=== PATIENT | male | born 1980 | race Caucasian/White ===

== ENCOUNTER 2024-05-24 15:25 | Outpatient (CLI) | payer BC, SELFPAY ==
--- NOTE | 2024-05-24 | XR_ITS ---
PROCEDURE INFORMATION: Exam: XR Chest Exam date and time: 05/24/2024 3:50 PM Age: 43 years old Clinical indication: Other: Heaviness in chest. SOA. Fever. TECHNIQUE: Imaging protocol: Radiologic exam of the chest. Views: 2 views. COMPARISON: No relevant prior studies available. FINDINGS: Lungs: Unremarkable. No consolidation. Pleural spaces: Unremarkable. No pleural effusion. No pneumothorax. Heart/Mediastinum: Unremarkable. No cardiomegaly. Bones/joints: Unremarkable. IMPRESSION: No acute findings.
[2024-05-24 15:46] LABS: Microscopic, Urine URINE MICROSCOPIC (MICROSCOPIC)
[2024-05-24 16:10] LABS: Appearance,Urine CLEAR (Clear); Bilirubin,Urine Negative (Negative); Blood, Urine Negative (Negative); Color,Urine YELLOW (Yellow); Glucose,Urine (UA) Negative (Negative); Ketones,Urine Negative (Negative); Leukocyte Esterase,Urine Negative (Negative); Nitrate,Urine Negative (Negative); Protein,Urine Negative (Negative); Specific Gravity, Urine 1.025 (1.005-1.030)
[2024-05-24 16:22] LABS: Bacteria,Urine Trace /lpf; Mucus,Urine Trace /lpf
== END 2024-05-24 23:59 | disposition home or self-care (01) ==
PROVIDERS: PCP Physician Assistant; Visit Provider Physician Assistant
DX: R31.29 Other microscopic hematuria (principal)
CPT/HCPCS: 71046; 81001; 87086

== ENCOUNTER 2024-10-04 17:08 | Emergency (ER) | payer BC, SELFPAY ==
--- OUTSIDE RECORDS SUMMARY | 2024-02-08 11:15 | XMS_ITS ---
Author Organization [facility] Address [facility] [facility] [address] [place] [id number] Care Team Providers Care Strip Cutting Machine Operator Name Role Phone Thu Fregoso Primary Care Provider Allergies No Known Allergies Results Component Value Reference Range Notes Influenza Screen (in house) Reviewed date:02/08/2024 05:12:14 PM Interpretation: Performing Lab: Notes/Report: results Neg Rapid Strep- Inhouse Reviewed date:02/08/2024 05:12:22 PM Interpretation: Performing Lab: Notes/Report: strep test Neg CBC Fingerstick (in house) Reviewed date:02/08/2024 04:19:22 PM Interpretation: Performing Lab: Notes/Report: wbc 9.5 3.5 - 10 lym 19.6 15 - 50 mid 5.2 2 - 15 gran 75.2 35 - 80 rbc 5.43 3.5 - 5.5 hgb 15.9 11.5 - 16.5 hct 48.2 35 - 55 mcv 88.7 75 - 100 mch 29.3 25 - 35 mchc 33.0 31 - 38 plat 232 100 - 400 Covid test (in house) Reviewed date:02/08/2024 05:12:07 PM Interpretation: Performing Lab: Notes/Report: Result: Neg REASON FOR VISIT cough,fever, weak, negative COVID test Medications Medication SIG (Take, Route, Frequency, Duration) Notes Start Date End Date Status Bromfed DM 2-30-10 MG/5ML 5-10 mL Orally four times a day, prn 02/08/2024 Active Zithromax Z-Williams 250 MG 2 pills first day then one daily for 4 days orally as directed; Duration: 5 days 02/08/2024 Activ e Vital Signs Blood pressure systolic 120 mm Hg 02/08/20 24 Blood pressure diastolic 74 mm Hg 024 Heart Rate 89 /min 02/08/2024 Weight 206.4 lbs 02/08/2024 Encounters Encounter Location Date Provider Diagnosis [facility] [address] [place] [id number] 02/08/2024 Thu Fregoso Acute URI J06.9 and Bronchitis J40 Assessments Encounter Date Diagnosis (ICD Code) Assessment Notes Treatment Notes Treatment Clinical Notes Section Notes 02/08/2024 Acute URI (ICD-10 - J06.9) fluids, rest, supportive measures for fever/symptom relief 02/08/2024 Bronchitis (ICD-10 - J40) Has inhaler at home he will use. If no improvement by first of the week, will need a CXR. Plan Of Treatment Medication Medication Name Sig Start Date Stop Date Notes Bromfed DM 2-30-10 MG/5ML 5-10 mL Orally four times a day, prn 02/08/2024 Zithromax Z-Williams 250 MG 2 pills first day then one daily for 4 days orally as directed; Duration: 5 days 02/08/2024 Treatment Notes Assessment Notes Acute URI fluids, rest, suppor tive measures for fever/symptom relief Bronchitis Has inhaler at home he will use. If no improvement by first of the week, will need a CXR. Next Appt Details Follow Up: prn, Reason: Progress Notes * GRUPO CERVANTESOB:1980 (43 yo M)Acc No.[id number]:02/08/2024 Progress Notes Patient: Chino GOFFYAZANDALEDAVONTE Provider: RUPINDER Welch :1980 A ge:43 Y S ex:Male Date:02/08/2024 Address:[address] [place] [address] Subjective: * Chief Complaints: * 1 . cough,fever, weak, negative COVID test. * HPI: E NT/respiratory: 43 year old male presents with c/o sore throat. c/o cough?Pt sts he has been in the bed for 3 days not feeling well. Pt sts his symptoms started late Sunday. Pt sts he first noticed he had a sore throat and then his symptoms got progressively worse. Pt sts he has been around people with covid but sts when he took his test it was negative. c/o Fever. c/o Chest Pain. c/o Short of Breath. c/o headache. c/o body aches.? Denies : ear pain. * Medical History: M edical History Verified. * Family History: N o Family History documented.. * Medications: N one * Allergies: N .K.D.A. Objective: * Vitals: W t:206.4, Temp:98.6, BP:120/74, HR:89, O2 Sat:95% on RA, Nurse:ANABEL. * Examination: E NT/Respiratory: General Appearance: Does not appear to feel well. E ars: a uditory canals normal bilaterally, TM's WNL. N ose : turbinates red, congested.?Sinuses : t shyanne maxillary sinuses bilaterally. O ral cavity : erythema without exudate on pharynx, PND present. N christy : n o cervical lymphadenopathy. H eart : R RR, normal S1 S2, no murmurs. L ungs: expiratory wheezes, no rales. Assessment: * Assessment: 1. A molly URI - J06.9 (Primary) 2 . B venus - J40 Plan: * Treatment: Value Reference Range r esults Neg * Joyce Sexton 02/08/2024 4:23:46 PM > , Provider reviewed results while patient in office.Thu Fregoso 02/08/2024 5:12:11 PM > ?LAB: Rapid Strep- Inhouse (Collection Date & Time - 02/08/2024)* Value Reference Range s trep test Neg * Joyce Sexton 02/08/2024 4:24:01 PM > , Provider reviewed results while patient in office.Thu Fregoso 02/08/2024 5:12:19 PM > ?LAB: CBC Fingerstick (in house) (Collection Date & Time - 02/08/2024)* Value Reference Range w bc 9.5 3.5 - 10 * l ym 19.6 15 - 50 * m id 5.2 2 - 15 * g ran 75.2 35 - 80 * r bc 5.43 3.5 - 5.5 * h gb 15.9 11.5 - 16.5 * h ct 48.2 35 - 55 * m cv 88.7 75 - 100 * m ch 29.3 25 - 35 * m chc 33.0 31 - 38 * p lat 232 100 - 400 * Bhavna Jones 02/08/2024 4:01: 41 PM > Provider reviewed results while patient in office.VicedgardThu Katz 02/08/2024 4:19:19 PM > Notes: fluids, rest, supportive measures for fever/symptom relief??2.?Bronchitis ? Start Zithromax Z-Williams Tablet, 250 MG, 2 pills first day then one daily for 4 days, orally, as directed, 5 days, 1, Refills 0;?Start Bromfed DM Syrup, 2-30-10 MG/5ML, 5-10 mL, Orally, four times a day, prn, 240 mL, Refills 1.?LAB: Covid test (in house) (Collection Date & Time - 02/08/2024)* Value Reference Range R esult: Neg * Joyce Sexton 02/08/2024 4:24:14 PM > , Provider reviewed results while patient in office.VicedgardThu Katz 02/08/2024 5:12:04 PM > Notes: Has inhaler at home he will use. If no improvement by first of the week, will need a CXR. ? * Procedure Codes: 9 [address] [place], [address] CAPILLARY BLOOD DRAW, 29529 CBC WITH AUTO DIFF, 72105 Flu Test- Nasal Swab, Modifiers: QW , 72935 STREP A ASSAY W/OPTIC, Modifiers: QW , 59038 COVID TEST IN HOUSE, Modifiers: QW * Follow Up: p rn * Images: Billing Information: * Visit Code: 28099 Office Visit, New Pt., Level 2. * Procedure Codes: [address] [place]. [address] CAPILLARY BLOOD DRAW. 78359 CBC WITH AUTO DIFF. 73090 Flu Test- Nasal Swab. Modifiers: QW 94067 STREP A ASSAY W/OPTIC. Modifiers: QW 42369 COVID TEST IN HOUSE. Modifiers: QW * Electronic signature of RUPINDER Robin on 10/04/2024 at 05:34 PM EDT Sign off status: Pending * Provider: RUPINDER Welch Date: 04/09/2023 Generated for Tom meraz/Phillip/eTransmitting on: 0 10/04/2024 05:34 PM EDT History and Physical Notes * HPI (History of Present Illness) Category Sub-Category Detail Notes Category Not es ENT/respiratory sore throat ear pain Short of Breath Chest Pain cough Pt sts he has been i n the bed for 3 days not feeling well. Pt sts his symptoms started late Sunday. Pt sts he first noticed he had a sore throat and then his symptoms got progressively worse. Pt sts he has been around people with covid but sts when he took his test it was negative Fever headache body aches Examination Category Sub-Category Detail Notes Category Not es ENT/Respiratory Oral cavity : erythema without exudate on pharynx, PND present Sinuses : tender maxillary sin uses bilaterally Ears: auditory canals norm al bilaterally, TM's WNL Neck : no cervical lymphade nopathy Heart : RRR, normal S1 S2, n o murmurs Lungs: expiratory wheezes, no rales General Appearance: Does not appear to f eel well Nose : turbinates red, greg ested
--- OUTSIDE RECORDS SUMMARY | 2024-05-22 07:30 | XMS_ITS ---
[facility] [address] [facility] [address] [id number] Care Team Providers Care Shearing Machine Tender Name Role Phone Thu Fregoso Primary Care Provider Allergies No Known Allergies Results Component Value Reference Range Notes Urinalysis - Inhouse Reviewed date:05/22/2024 05:04:25 PM Interpretation: Performing Lab: Notes/Report: Color/Clarity crissy/clear Leuk Neg Nitrite Neg Urobili >=131 Protein 2+ pH 6.0 Blood Trace-Intact Sp. Gr. 1.015 Ketone 1+ Bili 2+ Gluc Neg Influenza Screen (in house) Reviewed date:05/22/2024 05:07:28 PM Interpretation:neg Performing Lab: Notes/Report: neg results neg CBC Fingerstick (in house) Reviewed date:05/22/2024 05:07:35 PM Interpretation: Performing Lab: Notes/Report: wbc 9.3 3.5 - 10 lym 22.3 15 - 50 mid 6.2 2 - 15 gran 71.5 35 - 80 rbc 5.25 3.5 - 5.5 hgb 15.6 11.5 - 16.5 hct 45.2 35 - 55 mcv 86.1 75 - 100 mch 29.7 25 - 35 mchc 34.5 31 - 38 plat 216 100 - 400 P-Comprehensive Metabolic Pa sofi (CMP) Reviewed date:05/26/2024 07:43:11 AM Interpretation: Performing Lab: Notes/Report: Test performed by [facility] [address] [place] [address] , [address], [place] [address] Chadd Wong MD, [employer] CLIA: [id number] Sodium 140 135-145 mmol/L Potassium 4.3 3.5-5.3 mmol/L Chloride 98 97-108 mmol/L CO2 29 22-32 mmol/L Glucose 83 65-99 mg/dL BUN 20 6-20 mg/dL Creatinine 1.13 0.70-1.30 mg/dL Calcium 9.6 8.6-10.4 mg/dL eGFR by Creatinine 83 >59 mL/min/1.73m2 Protein 7.3 6.0-8.3 g/dL Albumin 4.4 3.5-5.3 g/dL Alkaline Phosphatase 67 40-129 IU/L ALT (SGPT) 18 <5-55 IU/L AST (SGOT) 19 <5-46 IU/L Bilirubin, Total 0.7 <0.2-1.2 mg/dL A/G Ratio 1.5 1.1-2.5 TEN-Upper Respiratory PCR Reviewed date:05/26/2024 08:04:26 AM Interpretation:Abnormal Performing Lab: Notes/Report: Abnormal Covid test (in house) Reviewed date:05/22/2024 05:07:20 PM Interpretation:neg Performing Lab: Notes/Report: neg Result: neg REASON FOR VISIT Possible Flu, Day 6 Medications Medication SIG (Take, Route, Frequency, Duration) Notes Start Date End Date Status Promethazine-DM 6.25-15 MG/5ML 5 ml as needed Orally every 6 hrs, prn 05/22/2024 Active Vital Signs Blood pressure systolic 120 mm Hg 05/22/19 25 Blood pressure diastolic 70 mm Hg 025 Heart Rate 107 /min 05/22/2024 Weight 210.0 lbs 05/22/2024 Encounters Encounter Location Date [facility] [address] [id number] 05/22/2024 Thu Fregoso Acute URI J06.9 ; Bronchitis J40 ; Microscopic hematuria R31.29 and Dehydration E86.0 Assessments Encounter Date Diagnosis (ICD Code) Assessment Notes Treatment Notes Treatment Clinical Notes Section Notes 05/22/2024 Acute URI (ICD-10 - J06.9) 05/22/2024 Bronchitis (ICD-10 - J40) Patient has an albuterol inhaler at home he will start using. 05/22/2024 Microscopic hematuria (ICD-10 - R31.29) 05/22/2024 Dehydration (ICD-10 - E86.0) Plan Of Treatment Medication Medication Name Sig Start Date Stop Date Notes Promethazine-DM 6.25-15 MG/5ML 5 ml as n eeded Orally every 6 hrs, prn 05/22/2024 Treatment Notes Assessment Notes Bronchitis Patient has an albut juan j inhaler at home he will start using. Next Appt Details Follow Up: via phone to repo rt test results, Reason: Progress Notes * GRUPO CERVANTESOB:1980 (43 yo M)Acc No.[id number]:05/22/2024 Progress Notes Patient: DAVONTE SANTOS Provider: RUPINDER Welch :1980 A ge:43 Y S ex:Male Date:05/22/2024 Address:[address] [place] [address] Subjective: * Chief Complaints: * 1 . Possible Flu, Day 6. * HPI: E NT/respiratory: 43 year old male presents with c/o cough P t sts he does have sneezing, runny nose and sts his drainage is yellow in color. c/o nasal congestion. c/o Fever P t sts he has had a fever and sts he wakes up with his pillow soaked in sweat and sts he has chills. c/o ear pain P t sts that his rt ear is stopped up and he can not hear out of it. c/o headache. c/o body aches. Pt sts his symptoms started on Sunday. G astroenterology: c/o appetite P t sts he does not have any appetite and has not eaten anything in 4 days, but sts he has being staying hydrated with lots of water. U rology: Pt sts that his urine has been a different color than it has ever been as well. * Medical History: M edical History Verified. * Family History: N o Family History documented.. * Medications: N one * Allergies: N .K.D.A. Objective: * Vitals: W t:210.0, Temp:98.4, BP:120/70, HR:107, O2 Sat:97% on RA, Nurse:annalise. * Examination: E NT/Respiratory: General Appearance: Doesn't appear to feel well. E ars: c erumen in right canal, left canal normal, TM's WNL. N ose : turbinates red, congested. S inuses : non tender bilaterally. O ral cavity : no erythema or exudate seen on pharynx, PND present. N christy : n o cervical lymphadenopathy. H eart : R RR, normal S1 S2, no murmurs. L ungs: expiratory wheezes, no rales. A bdomen : BS present, soft, nontender. Assessment: * Assessment: 1. A cute URI - J06.9 (Primary) 2 . B ronchitis - J40 3 .?Microscopic hematuria - R31.29 4 . D ehydration - E86.0 Plan: * Treatment: 2.?Bronchitis?LAB: Influenza Screen (in house) (Collection Date & Time - 05/22/2024)?neg * Value Reference Range r esults neg * Bhavna Jones 05/22/2024 12:00 :07 PM > Provider reviewed results while patient in office.Thu Fregoso 05/22/2024 5:07:25 PM > ?LAB: CBC Fingerstick (in house) (Collection Date & Time - 05/22/2024)* Value Reference Range w bc 9.3 3.5 - 10 * l ym 22.3 15 - 50 * m id 6.2 2 - 15 * g ran 71.5 35 - 80 * r bc 5.25 3.5 - 5.5 * h gb 15.6 11.5 - 16.5 * h ct 45.2 35 - 55 * m cv 86.1 75 - 100 * m ch 29.7 25 - 35 * m chc 34.5 31 - 38 * p lat 216 100 - 400 * Bhavna Jones 05/22/2024 11:59 :19 AM > Provider reviewed results while patient in office.Thu Fregoso 05/22/2024 5:07:32 PM > ?LAB: Covid test (in house) (Collection Date & Time - 05/22/2024)?neg* Value Reference Range R esult: neg * Bhavna Jones 05/22/2024 11:59 :43 AM > Provider reviewed results while patient in office.Thu Fregoso 05/22/2024 5:07:18 PM > Notes: Patient has an albuterol inhaler at home he will start using.?? 3.?Microscopic hematuria?LAB: Urinalysis - Inhouse (Collection Date & Time - 05/22/2024)* Value Reference Range C olor/Clarity crissy/clear * L euk Neg * N itrite Neg * U robili >=131 * P rotein 2+ * p H 6.0 * B lood Trace-Intact * S p. Gr. 1.015 * K etone 1+ * B saida 2+ * G matthew Neg * Joyce Sexton 05/22/2024 12:35:4 2 PM > , Provider reviewed results while patient in office.Thu Fregoso 05/22/2024 5:04:20 PM > will cx 4.?Dehydration?LAB: P-Comprehensive Metabolic Panel (CMP) (Collection Date & Time - 05/22/2024 11:23 AM)* Value Reference Range A /G Ratio 1.5 1.1-2.5 - * A lbumin 4.4 3.5-5.3 - g/dL * A lkaline Phosphatase 67 40-129 - IU/L * A LT (SGPT) 18 <5-55 - IU/L * A ST (SGOT) 19 <5-46 - IU/L * B ilirubin, Total 0.7 <0.2-1.2 - mg/dL * B UN 20 6-20 - mg/dL * C alcium 9.6 8.6-10.4 - mg/dL * C hloride 98 97-108 - mmol/L * C O2 29 22-32 - mmol/L * C reatinine 1.13 0.70-1.30 - mg/dL * G lucose 83 65-99 - mg/dL * P otassium 4.3 3.5-5.3 - mmol/L * S odium 140 135-145 - mmol/L * P rotein 7.3 6.0-8.3 - g/dL * e GFR by Creatinine 83 >59 - mL/min/1.73m2 * Thu Fregoso 05/26/2024 7: 43:00 AM > already discussed with patient * Procedure Codes: 9 47[address] [place], [address] Flu Test- Nasal Swab, Modifiers: QW , 59332 COVID TEST IN HOUSE, Modifiers: QW , 71392 CAPILLARY BLOOD DRAW, 69923 CBC WITH AUTO DIFF, 63336 Urinalysis, no micro, 3074F SYST BP LT 130 MM HG, 3078F DIAST BP < 80 MM HG * Follow Up: v ia phone to report test results * Images: Billing Information: * Visit Code: 80619 Office Visit, Est Pt., Level 3. * Procedure Codes: [address] [place]. [address] Flu Test- Nasal Swab. Modifiers: QW 01037 COVID TEST IN HOUSE. Modifiers: QW 22611 CAPILLARY BLOOD DRAW. 46939 CBC WITH AUTO DIFF. 64914 Urinalysis, no micro. 3074F SYST BP LT 130 MM HG. 3078F DIAST BP < 80 MM HG. * Electronic signature of RUPINDER Robin on 10/04/2024 at 05:34 PM EDT Sign off status: Pending * Provider: RUPINDER Welch Date: 0 05/22/2024 Generated for Tom meraz/Phillip/eTransmitting on: 0 10/04/2024 05:34 PM EDT History and Physical Notes * HPI (History of Present Illness) Category Sub-Category Detail Notes Category Not es ENT/respiratory ear pain Pt sts that his rt ear is stopped up and he can not hear out of it Pt sts his symptoms started on Sunday cough Pt sts he does have sneezing, runny nose and sts his drainage is yellow in color Fever Pt sts he has had a fever and sts he wakes up with his pillow soaked in sweat and sts he has chills headache nasal congestion body aches Gastroenterology appetite Pt sts he does not have any appetite and has not eaten anything in 4 days, but sts he has being staying hydrated with lots of water Urology Pt sts that his urine has been a different color than it has ever been as well Examination Category Sub-Category Detail Notes Category Not es ENT/Respiratory Oral cavity : no erythema or e xudate seen on pharynx, PND present Sinuses : non tender bilateral ly Ears: cerumen in right can al, left canal normal, TM's WNL Neck : no cervical lymphade nopathy Heart : RRR, normal S1 S2, n o murmurs Lungs: expiratory wheezes, no rales Abdomen : BS present, soft, no ntender General Appearance: Doesn't appear to fe el well Nose : turbinates red, greg ested
[2024-10-04 17:22] VITALS: BP 132/85; PULSE 78; RESP 18; TEMP 36.7; O2SAT 97; BMI 31.2
--- OUTSIDE RECORDS SUMMARY | 2024-10-04 17:35 | XMS_ITS | Patient Health Record ---
Author Organization [facility] Address [address] [place] [id number] Care Team Providers Care Separator Inserter Name Role Phone Thu Fregoso Primary Care Provider [phone] Allergies No Known Allergies Results Component Value [...] PM Interpretation: Performing Lab: Notes/Report: Result: Neg Urinalysis - Inhouse Reviewed date:05/22/2024 05:04:25 PM [...] Interpretation: Performing Lab: Notes/Report: Test performed by [employer] [address] [place] [address] , [address], [place] [address] Chadd Wong MD, [employer] CLIA: [id number] Sodium 140 135-145 mmol/L Potassium 4.3 3.5-5.3 [...] Interpretation:neg Performing Lab: Notes/Report: neg Result: neg H-UA Reviewed date:05/26/2024 07:27:39 AM Interpretation: Performing Lab: Notes/Report: UCOL YELLOW Yellow UAPP CLEAR Clear UPH 6.0 5.0-8.5 USG 1.025 1.005-1.030 UPRO Negative Negative UGLU Negative Negative UKET Negative Negative UBLD Negative Negative UNIT Negative Negative UBIL Negative Negative UURO 4.0 0.2 EU/dl ULEU Negative Negative UMICU URINE MICROSCOPIC MICROSCOPIC CXR Reviewed date:05/26/2024 05:16:16 PM Interpretation: Performing Lab: Notes/Report: CISCO Reviewed date:02/08/2024 11:34:59 AM Interpretation: Performing Lab: Notes/Report: H-UA Reviewed date:05/26/2024 07:27:24 AM Interpretation: Performing Lab: Notes/Report: UCOL YELLOW Yellow UAPP CLEAR Clear UPH 6.0 5.0-8.5 USG 1.025 1.005-1.030 UPRO Negative Negative UGLU Negative Negative UKET Negative Negative UBLD Negative Negative UNIT Negative Negative UBIL Negative Negative UURO 4.0 0.2 EU/dl ULEU Negative Negative UMICU URINE MICROSCOPIC MICROSCOPIC URBC None 0-3 #/hpf UWBC None 0-3 #/hpf USQEPI 3-5 0-5 #/hpf UBACT Trace NONE /lpf UMUC Trace None /lpf H-Urine Culture and Sensitiv ity Reviewed date:05/26/2024 05:16:16 PM Interpretation: Performing Lab: Notes/Report: [facility] NO GROWTH AFTER 2 DAYS Reason For Referral No Information Medications Medication SIG (Take, Route, Frequency, Duration) Notes Start Date End Date Status Promethazine-DM 6.25-15 MG/5ML 5 ml as needed Orally every 6 hrs, prn 05/22/2024 Active Cefdinir 300 MG 1 cap(s) Orally Two times a day; Duration: 7 days 05/26/2024 Active Vital Signs Heart Rate 107 /min 05/22/2024 Blood pressure diastolic 70 mm Hg 05/22/2024 Blood pressure systolic 120 mm Hg 05/22/2024 Weight 210.0 lbs 05/22/2024 Encounters Encounter Location Date Provider Diagnosis [facility] [address] [facility] [address] [facility] [address] [place] [id number] 02/08/2024 Thu Crowdy Acute URI J06.9 and Bronchitis J40 [facility] [address] [facility] [address] [facility] [address] [place] [id number] 05/22/2024 Thu Crowdy Acute URI J06.9 ; Bronchitis J40 ; Microscopic hematuria R31.29 and Dehydration E86.0 [facility] [address] [place], [place] [id number] 05/23/2024 Thu Fregoso Microscopic hematuri a R31.29 and Bronchitis J40 [facility] [address] [place], [place] [id number] 05/26/2024 Thu Fregoso [facility] [address] [place], [place] [phone] 05/26/2024 Thu Fregoso Assessments Encounter Date Diagnosis (ICD Code) Assessment Notes Treatment Notes Treatment Clinical Notes Section Notes 02/08/2024 Bronchitis (ICD-10 - J40) Has inhaler at home he will use. If no improvement by first of the week, will need a CXR. 02/08/2024 Acute URI (ICD-10 - J06.9) fluids, rest, supportive measures for fever/symptom relief 05/22/2024 Bronchitis (ICD-10 - J40) Patient has an albuterol inhaler at home he will start using. 05/22/2024 Acute URI (ICD-10 - J06.9) 05/23/2024 Bronchitis (ICD-10 - J40) 05/23/2024 Microscopic hematuria (ICD-10 - R31.29) 05/22/2024 Microscopic hematuria (ICD-10 - R31.29) 05/22/2024 Dehydration (ICD-10 - E86.0) Plan Of Treatment No Information Insurance Providers Payer Name Payer Address Payer Phone Subscriber Number Group Number Insured Name Patient Relationship to Insured Coverage Start Date Coverage End Date [employer] [address] [place] [address] [id number] DAVONTE CERVANTES Self - patient is the insured Medical (General) History Surgical History Surgery Date(Month/Year)
--- NOTE | 2024-10-04 18:09 | ECG_ITS ---
APPROVED REPORT Exam: Resting ECG HR:78 bpm ECG Measurements Heart Rate 78 AXES WV 140 P 59 QRSd 88 QRS 76 QT 362 T 59 QTc 395 Conclusion Sinus rhythm Electronically signed by : MELINA BRANCH, 10/04/2024 22:40:37
[2024-10-04 18:10] LABS: Anti-Centromere B Antibodies ND; Anti-Jo-1 ND; Antichromatin Antibodies ND; Antiscleroderma-70 Antibodies ND; Lyme Ab IgM CIA ND; Lyme IgG CIA ND; RNP Antibodies ND; Sjogren's Anti-SS-A ND; Sjogren's Anti-SS-B ND
--- NOTE | 2024-10-04 18:15 | ED_ITS ---
Discharge Plan Disposition Patient Disposition: Home, Self-Care Prescriptions Prescriptions: New prednisone 20 mg tablet 40 mg PO DAILY 5 Days Qty: 10 0RF Referrals Follow up/Referrals: Provider,Referral, MD [Primary Care Provider, Medical] - See instructions Activity Restrictions/Add. Instructions Additional Instructions/Restrictions: Set up follow-up with rheumatology [facility]: [phone] [facility]: [phone] Call your family doctor to establish care for this visit to the emergency department and schedule follow-up within 48 hours to ensure improvement. If you have any worsening of your condition or any other concerning signs or symptoms, return to the emergency department or your primary care doctor for further evaluation. Clinical Impressions Clinical Impression: Malaise, Polyarthralgia Stand Alone Forms Stand Alone Forms: Work/School Release Print Language Print Language: Egyptian Discharge ED Provider: Nestor Muhammad General Adult HPI General Chief complaint: Extremity Problem,Nontraumatic Stated complaint: nausea,chest discomfort,weakness Time Seen by Provider: 10/04/24 17:51 Mode of Arrival: Ambulatory Description of Symptoms (Recalled from ER Triage Doc. by RN): c/o 2 days a flare up of feeling lethargic, nauseated and achy and joints sore, pt reports that he has these symptoms off and on for the past few years, with them coming and going History of Present Illness HPI narrative: Please note that above description of symptoms, in this electronic medical record under categorization of recalled from ER triage doctor by RN are reflective of an initial nursing assessment, however, is not reflective of my full history and physical exam that was personally taken and clarified. Consequentially, this preceding description of symptoms, which may include the patient's categorized chief complaint in the EMR, do not reflect my personal clinical impression, and the ultimate description of history of present illness and patient stated complaints should be deferred to this section of the note. Unless stated otherwise or congruent with this section of the note, additional signs, symptoms, or incongruence should be interpreted as inaccurate with my clinical impression. Related Data Previous Rx's ?Medication ?Instructions ?Recorded prednisone 20 mg tablet 40 mg (2 x 20 mg) PO DAILY 5 days 10/04/24 #10 tabs Allergies Allergy/AdvReac Type Severity Reaction Status Date / Time No Known Allergies Allergy Verified 10/04/24 18:45 [facility] Disclaimer: The information contained in this section may have been updated after the patient was seen, as this information can be updated by other users. Social History Smoking Status: Former smoker alcohol intake: current current occupational status: employed Travel in the last 8 weeks?: None ROS Obtained: Yes All systems reviewed & no additional complaints except as documented Physical Exam General General appearance: alert and in no apparent distress Head Head exam: atraumatic and normocephalic Eye Eye exam: Present normal appearance, PERRL and EOMI Neck Neck exam: Present normal inspection, full ROM and trachea midline Respiratory Respiratory exam: Absent respiratory distress, wheezes, stridor, accessory muscle use or prolonged expiratory phase Cardiovascular Cardiovascular exam: Present other (Pulses equal symmetric in upper and lower extremities) Abdominal Exam Abdominal exam: Present soft; Absent distention, tenderness or pulsatile mass Extremities Exam Extremities exam: Present tenderness (Elbows with no outward signs of abnormality); Absent edema Neurological Exam Neurological exam: Present alert, oriented X3 and CN II-XII intact; Absent motor sensory deficit Skin Skin exam: Present warm and dry; Absent diaphoresis or erythema Medical Decision Making Medical Records Medical records reviewed: Yes I reviewed the patient's medical records. Screening: Per USPSTF and CDC recommendations, given the prevalence of disease in our region, it is our hospital?s policy to screen for HIV and viral Hepatitis for all patients aged 18 and over and those with ongoing risk factors. Seven Inquiry Pt receiving controlled substance: No Seven was queried for this patient: No Vital Signs: 10/04/24 17:22 Temperature 98.1 F Temperature Source Oral Pulse Rate [Left Radial] 78 Respiratory Rate 18 Blood Pressure [Right Arm] 132/85 Blood Pressure Mean [Right Arm] 100 02 Sat by Pulse Oximetry 97 Oxygen Delivery Method Room Air Lab Data Lab Results 10/04/24 17:38: WBC 6.6, RBC 5.36, Hgb 15.9, Hct 46.4, MCV 86.6, MCH 29.7, MCHC 34.3, RDW 11.8, Plt Count 299, MPV 8.9, Neut % (Auto) 50.8, Lymph % (Auto) 32.8, [place] % (Auto) 10.6 H, Eos % (Auto) 4.9, Baso % (Auto) 0.6, Neut # (Auto) 3.3, Lymph # (Auto) 2.2, [place] # (Auto) 0.7, Eos # (Auto) 0.3, Baso # (Auto) 0.0, ESR 2, Sodium 136, Potassium 3.9, Chloride 100, Carbon Dioxide 28, Anion Gap 11.9, BUN 16, Creatinine 1.20, Estimated Creat Clear 113, Estimated GFR 67, Est GFR ( Amer) 81, Glucose 78, Calcium 9.7, Total Bilirubin 0.4, AST 28, ALT 22, Alkaline Phosphatase 54, Total Creatine Kinase 90, C-Reactive Protein 5.1 H, Total Protein 7.2, Albumin 4.3, Globulin 2.9, Albumin/Globulin Ratio 1.5 10/04/24 18:50: Urine Color Yellow, Urine Appearance Clear, Urine pH 6.0, Ur Specific [place] 1.010, Urine Protein Negative, Urine Glucose (UA) Negative, Urine Ketones Negative, Urine Blood Negative, Urine Nitrate Negative, Urine Bilirubin Negative, Urine Urobilinogen 1.0, Ur Leukocyte Esterase Negative, Urine RBC Occasional, Urine WBC Occasional, Ur Squamous Epith Cells 3-5, Urine Bacteria Trace, Urine Mucus Trace 10/04/24 17:38 10/04/24 17:38 Orders (Tests/Meds): ED MEDICATIONS Discontinued Medications Generic Name Dose Route Start Last Admin Trade Name Freq PRN Reason Stop Dose Admin Dexamethasone 10 mg 10/04/24 18:08 10/04/24 18:51 Dexamethasone 4mg Tablet PO 10/04/24 18:09 10 mg ONCE ONE Administration Lactated Ringer's 1,000 mls @ 999 mls/hr 10/04/24 18:08 10/04/24 18:51 Lactated Ringer's 1000 Ml Bag IV 10/04/24 19:08 999 mls/hr .Q1H1M ONE Administration ORDERS Category Date Time Status POCUS Point of Care (ER Only) Stat Exams 10/04/24 18:18 Completed MARQUISE w/Reflex if Positive Stat Lab 10/04/24 17:38 Received Anti-DNA (DS) Ab Qn Stat Lab 10/04/24 17:38 Received CBC w/Auto Diff [Complete Blood Count Auto Diff] Stat Lab 10/04/24 17:38 Completed CK [Creatine Kinase] Stat Lab 10/04/24 17:38 Completed CMP [Comprehensive Metabolic Panel] Stat Lab 10/04/24 17:38 Completed CRP [C-Reactive Protein] Stat Lab 10/04/24 17:38 Completed ESR [Erythrocyte Sedimentation Rate] Stat Lab 10/04/24 17:38 Completed Human Granulocytic Zoë-HGE Stat Lab 10/04/24 17:38 Received Lyme Ab, Modified 2-Tier Stat Lab 10/04/24 17:38 Received UA [Urinalysis and Microscopic] Stat Lab 10/04/24 18:50 Completed Urine Chlam/Gono/Trich, JOURDAN Routine Lab 10/04/24 18:50 Received Medical Decision Narrative: This is a 43-year-old male with no relevant medical history presenting with multiple complaints. He states that he has had multiple episodes over the past few years where he is felt generally weak, achy in his joints, rashes popped up on his chest and face. 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 States that for the past couple of weeks he has been feeling generally drained. Gotten to the point where he has almost no energy to get out of bed has missed work the last 2 days. States that he has not had any rash this time around, but has aching elbows. Denies any red, hot, swollen joints currently or in the past. No chest pain, shortness of breath, fevers or chills, no vomiting, no diarrhea, no sick exposures. No recent relevant travel, no obvious tick borne illnesses that he is had in the past, although he does not note that he has had ticks on him multiple times in the past. History was obtained via conversation with patient. On arrival, patient hemodynamically stable, alert, oriented x4, appropriate, GCS 15, moving all extremities spontaneously, pupils equal and reactive to light. Full physical exam performed and significant for very clinically well-appearing male no acute distress. Hemodynamically stable, afebrile, speaking in full sentences. Lungs are clear, cardiac exam without murmurs gallops or rubs. Patient's joints all inspected, no tenderness, no redness, no swelling, no abnormalities. Most tenderness appears to be in the mid forearm of radius and ulna. Not specifically over joints. No rash. Unremarkable exam overall. Differential includes autoimmune illness, tickborne illness, STI, metabolic abnormality, endocrinologic abnormality, among others. Patient placed on continuous cardiac monitoring and continuous pulse ox with initial blood pressure 132/85, heart rate 78, saturation 97% on room air. Independent interpretation of EKG shows sinus rhythm 78 bpm KS 140, QRS 88, QTc 395. Normal axis no acute ischemic changes. Intervals within normal limits. Patient was given fluids and Decadron for symptomatic management and correction of underlying abnormalities. Workup independently interpreted and significant for nonactionable CBC, chemistry, inflammatory markers. Urinalysis unremarkable. Bedside [id number] ultrasound was performed, on independent to rotation, normal cardiac ultrasound with no abnormal findings at all. Reevaluation, patient still feels at baseline, no changes. Unsure what is causing patient's symptoms, but recommended he follow-up with his family doctor as well as rheumatology. Some resources were supplied for follow-up that outside facility as we do not have rheumatology here. He voices understanding. Steroid to be sent to the pharmacy for the next 5 days as well as work release. Given patient presentation, workup, history, this most likely represents general malaise, polyarthralgias and rash of unknown significance. Because patient at baseline without signs or symptoms of clinical decompensation, deemed appropriate for discharge. Results were relayed to patient who voiced understanding and were agreeable to outpatient management and follow up. I discussed my clinical impression with patient and answered all questions. At this time, the evidence for any other entities in the differential is insufficient to warrant any further testing or ED observation. This was explained as well. Advisory was given that persistent or worsening symptoms require further evaluation. I confirmed the understanding of this discussion. Senior Civil Engineer disclaimer Much of this encounter note is an electronic pitting machine operator spoken language to printed text. Electronic pitting machine operator of the spoken language may permit errors. Although I have reviewed the note, some errors may still exist. Critical Care Critical Care Time Critical Care Time: No
[2024-10-04 18:18] LABS: Alanine Aminotransferase 22 U/L (12-78); Albumin Level 4.3 g/dl (3.5-5.0); Albumin/Globulin Ratio 1.5 (1.1-1.8); Alkaline Phosphatase 54 U/L (38-126); Anion Gap 11.9 mEq/L (5-15); Aspartate Amino Transferase 28 U/L (17-59); Bilirubin,Total 0.4 mg/dl (0.2-1.3); Blood Urea Nitrogen 16 mg/dl (9-20); Calcium 9.7 mg/dl (8.4-10.2); Carbon Dioxide 28 mmol/L (22.0-30.0); Chloride 100 mmol/L (98-107); Creatinine Clearance Estimated 113 mL/min (50-200); Estimated Glomerular Filt Rate 67 ml/min (>60); GFR (African American) 81 ML/MIN (>60); Globulin 2.9 g/dL (1.3-3.2); Glucose 78 mg/dl (74-100); Potassium 3.9 mmoL/L (3.5-5.1); Sodium 136 mmol/L (136-145); Total Protein,Serum 7.2 g/dl (6.3-8.2)
[2024-10-04 18:22] LABS: Basophils % 0.6 % (0.1-2.0); Eosinophils # 0.3 Kmm3 (0.0-0.4); Eosinophils % 4.9 % (0.1-12.0); Hematocrit 46.4 % (42.0-52.0); Hemoglobin 15.9 g/dL (14.1-18.0); Immature Granulocytes # 0.02 10^3uL; Immature Granulocytes % 0.3 %; Lymphocytes # 2.2 K/mm3 (0.7-4.5); Lymphocytes % 32.8 % (10-50); Mean Corpuscular HGB Conc 34.3 g/dL (31.8-35.4); Mean Corpuscular Hemoglobin 29.7 pg (27.0-31.2); Mean Corpuscular Volume 86.6 fl (80-94); Mean Platelet Volume 8.9 fl (7.4-10.4); Monocytes # 0.7 K/mm3 (0.1-1.0); Monocytes % 10.6 % (1.7-9.3); Neutrophils # 3.3 K/mm3 (1.8-7.8); Neutrophils % 50.8 % (37.0-80.0); Nucleated Red Blood Cells # 0 10^3/uL; Nucleated Red Blood Cells % 0 %; Platelet Count 299 K/mm3 (142-424); Red Blood Count 5.36 M/mm3 (4.60-6.20); Red Cell Distribution Width 11.8 % (11.5-17.5); Red Cell Distribution Width-SD 36.9 fL; White Blood Count 6.6 K/mm3 (4.8-10.8)
[2024-10-04 18:23] LABS: C-Reactive Protein 5.1 mg/L (0-4)
[2024-10-04 18:30] LABS: Creatine Kinase 90 U/L (55-170)
[2024-10-04 18:46] LABS: Erythrocyte Sedimentation Rate 2 mm/hr (0-15)
[2024-10-04] MEDS: LACTATED RINGERS 1000ML 1,000 ML 999 ML IV (18:51)
[2024-10-04] MEDS: DEXAMETHASONE 4MG TABLET 10 MG PO (18:51)
[2024-10-04 18:54] LABS: Microscopic, Urine URINE MICROSCOPIC (MICROSCOPIC)
[2024-10-04 19:02] LABS: Appearance,Urine CLEAR (Clear); Bilirubin,Urine Negative (Negative); Blood, Urine Negative (Negative); Color,Urine YELLOW (Yellow); Glucose,Urine (UA) Negative (Negative); Ketones,Urine Negative (Negative); Leukocyte Esterase,Urine Negative (Negative); Nitrate,Urine Negative (Negative); Protein,Urine Negative (Negative)
[2024-10-04 19:05] VITALS: BP 124/87; PULSE 73; O2SAT 99
[2024-10-04 19:17] LABS: Bacteria,Urine Trace /lpf; Mucus,Urine Trace /lpf; RBC,Urine Occasional #/hpf (0-3); WBC,Urine Occasional #/hpf (0-3)
[2024-10-04 19:30] VITALS: BP 139/95; PULSE 72; O2SAT 99
[2024-10-04 19:49] VITALS: BP 139/95; PULSE 66; RESP 17; TEMP 36.7; O2SAT 97
[2024-10-05 07:41] LABS: Chlamydia trachomatis Negative (Negative); Neisseria gonorrhoeae Negative (Negative); Trichomonas vaginalis Negative (Negative)
[2024-10-06 14:16] LABS: Anti-DNA (DS) Ab Qn <1 IU/mL (0-9); Antinuclear Antibodies (ANA) Negative (Negative); Lyme Ab CIA Negative (Negative)
[2024-10-17 08:54] LABS: Anti-DNA (DS) Ab Qn <1
[2024-10-17 08:55] LABS: HGE IgG Titer NEGATIVE; HGE IgM Titer NEGATIVE
== END 2024-10-04 19:50 | disposition home or self-care (01) ==
PROVIDERS: Emergency Provider Emergency Medicine
DX: R11.0 Nausea (principal); R53.83 Other fatigue; R21 Rash and other nonspecific skin eruption
CPT/HCPCS: 80053; 81001; 82550; 85025; 85651; 86038; 86140; 86225; 86618; 86666; 87491; 87591; 87661; 93005; 96360; 99284; J7120; J8540